=== PATIENT | female | born 1950 ===

== ENCOUNTER 2021-09-22 08:00 | Outpatient (CLI) | payer MEDICARE ==
--- NOTE | 2021-09-22 21:11 | XRAY Report ---
PROCEDURE: Chest 2 View X-Ray INDICATIONS: UNEXPLAINED COUGH TECHNIQUE: 2 view(s) of the chest. COMPARISON: None. FINDINGS: Surgical changes and devices: None. Lungs and pleura: No pleural effusions or pneumothorax. Lungs are clear. Mediastinum: Mediastinal contours are normal. Heart size is normal. Bones and chest wall: No suspicious bony abnormalities. Soft tissues appear unremarkable. IMPRESSION: No acute pulmonary process. Reviewed by: Tiffany De La Cruz MD on 09/22/2021 9:10 PM PDT Approved by: Tiffany De La Cruz MD on 09/22/2021 9:10 PM PDT Station ID: [id number]
== END 2021-09-22 23:59 | disposition home or self-care (01) ==
LOC: DI.N 08:00
PROVIDERS: ATTEND Family Medicine
DX: U07.1 COVID-19 (principal)
CPT/HCPCS: 71046; U0004